=== PATIENT | female | born 1960 | race Caucasian/White ===

== ENCOUNTER 2017-05-29 07:37 | Day surgery (SDC) | payer OTHER ==
[2017-05-24 11:44] VITALS: BMI 28.3
[~2017-05-29 07:37] MED LIST: DOCUSATE 100 MG CAP PO PRN; MAG HYDROX/AL HYDROX/SIMETH 30 ML CUP PO PRN; SODIUM CHLORIDE 0.9% 1,000 ML IV SCH; TEMAZEPAM 15 MG CAP PO PRN
[2017-05-29 08:22] LABS: Basophils % (A) 0 %; CH 30.3; CHCM 32.8; Eosinophils # (A) 0.1 k/uL (0-0.7); Eosinophils % (A) 2 %; HCT 44.9 % (34.0-46.0); HDW 2.57; HGB 14.7 gm/dL (11.4-16.0); Luc # (Auto) 0.33; Luc % (Auto) 4; Lymphocytes # (A) 2.4 k/uL (1.0-4.8); Lymphocytes % (A) 28 %; MCH 30.4 pg (25.0-35.0); MCHC 32.7 g/dL (31.0-37.0); MCV 92.9 fL (80.0-100.0); Mean Platelet Volume 6.6; Monocytes # (A) 0.4 k/uL (0-1.0); Monocytes % (A) 5 %; Neutrophils # (A) 5.1 k/uL (1.3-7.7); Neutrophils % (A) 61 %; RBC 4.83 m/uL (3.80-5.40); RDW 14.9 % (11.5-15.5); WBC 8.4 k/uL (3.8-10.6); WBC (Perox) 8.39
[2017-05-29 08:43] LABS: Anion Gap 8 mmol/L; Blood Urea Nitrogen 12 mg/dL (7-17); Calcium 9.1 mg/dL (8.4-10.2); Carbon Dioxide 24 mmol/L (22-30); Chloride 110 mmol/L (98-107); Glucose 92 mg/dL (74-99); Non-African American GFR(MDRD) >60 (>60 ml/min/1.73 sqM); Potassium 4.3 mmol/L (3.5-5.1); Sodium 142 mmol/L (137-145)
[2017-05-29] MEDS ORDERED: ASPIRIN 325 MG TAB PO ONE (10:40)
[2017-05-29] MEDS: MIDAZOLAM 2 MG/2 ML VIAL IVP ONE ×2 (10:58→11:26)
[2017-05-29] MEDS ORDERED: LIDOCAINE 2% INJ 20 MG/ML SQ ONE (11:24)
[2017-05-29] MEDS ORDERED: HYDROmorphone 2 MG/ML 1 ML SYRINGE IVP ONE (11:31)
[2017-05-29] MEDS ORDERED: HEPARIN SODIUM 1,000 UN/ML (10ML VL) IV ONE (11:45)
[2017-05-29] MEDS ORDERED: IOHEXOL 350 MG/ML (PER ML) 100ML BTL INJ ONE (12:15)
[2017-05-29] MEDS ORDERED: SODIUM CHLORIDE 0.9% 1,000 ML IV SCH (12:15)
--- NOTE | 2017-05-29 12:39 | IR ---
EXAMINATION TYPE: IR angio aortic arch DATE OF EXAM: 05/29/2017 COMPARISON: NONE HISTORY: Peripheral vascular occlusive disease. Fluoroscopy was provided to the referring clinician. See dictated report from cardiology. 11.1 brandon jaspal of fluoroscopy provided.
--- NOTE | 2017-05-29 12:45 | AN ---
ANGIOGRAPHY REPORT DATE OF SERVICE: 05/29/2017 PERFORMING PHYSICIAN: Sheldon Bedoya MD, Sap Portal Consultant. PROCEDURE PERFORMED: 1. An aortic arch angiogram. 2. Selective left subclavian angiogram. 3. Gradient measurement across the left subclavian artery. INDICATION: This is a pleasant 56-year-old female patient who sees Dr. Agarwal as an outpatient who is known to have left subclavian stenosis where she underwent about 10 years ago angioplasty of the left subclavian, underwent an arterial duplex study which showed severe disease involving the left subclavian. She was having symptoms of left arm discomfort. She was brought today to undergo an aortic arch and left subclavian angiogram. APPROACH: Right common femoral artery. COMPLICATION: None. LEVEL OF SEDATION: Moderate. After obtaining an informed consent. The patient was brought to the Cardiac Senior It Engineer. The right common femoral artery was cannulated using micropuncture technique, the micropuncture wire passed easily. Then I placed a 6-[place]izen [place] sheath in the right common femoral artery. Subsequently, I did an aortic arch angiogram using a 5-Citizen [place] pigtail catheter. I did left subclavian angiogram using Garrett right catheter. I did after that gradient measurement across the left subclavian using a 4-[place]izen [place] catheter. The procedure was completed without any complication.. 1. SELECTIVE PERIPHERAL ANGIOGRAM: Aortic arch is a type 1 arch. Gives rise into the innominate artery, left subclavian, and left side the left common carotid, left subclavian. 2. The innominate artery is angiographically normal. 3. The left carotid is angiographically normal. 4. The left subclavian has a lesion in the proximal portion, just one lesion proximal to the left vertebral and one lesion distal to the left vertebral and the lesion seems to be in the range of 60%. I did pressure gradient across it and that came into significant around 23 mmHg. CONCLUSION: 1. Type 1 aortic arch. 2. Severe disease involving the proximal left subclavian just by the left vertebral artery. POSTPROCEDURE MANAGEMENT: The patient will be scheduled to undergo a SILK WINDING MACHINE OPERATOR of the left subclavian. MMODL / IJN: [id number] /
[2017-05-29 15:32] VITALS: TEMP 98.2
[2017-05-29] MEDS ORDERED: NICOTINE 21MG/24HR PATCH TRANSDERM STA (15:55)
[2017-05-29 18:32] VITALS: PULSE 58
[2017-05-29 21:10] VITALS: BP 130/62; RESP 16
== END 2017-05-29 21:17 | disposition home or self-care (01) ==
LOC: CATHCVL 07:37 → 3OBS 14:40 → CATHCVL 21:17
PROVIDERS: ATTEND Internal Medicine Interventional Cardiology
DX: I70.218 Atherosclerosis of native arteries of extremities with intermittent claudication, other extremity (principal); I10 Essential (primary) hypertension; E78.5 Hyperlipidemia, unspecified; Z82.49 Family history of ischemic heart disease and other diseases of the circulatory system; F17.210 Nicotine dependence, cigarettes, uncomplicated; H81.09 Meniere's disease, unspecified ear; Z79.82 Long term (current) use of aspirin; Z79.899 Other long term (current) drug therapy; Z88.0 Allergy status to penicillin
CPT/HCPCS: 99152; 99153 ×4; 75710; 36225; 85347; 80048; 85025; C1769 ×6; C1894; J2001; J2250; J1170; Q9967; J1644; 36216; 36221

== ENCOUNTER 2017-06-19 09:54 | Day surgery (SDC) | payer OTHER ==
[~2017-06-19 09:54] MED LIST changes: +ASPIRIN 325 MG TAB PO STA; -DOCUSATE 100 MG CAP PO PRN; -MAG HYDROX/AL HYDROX/SIMETH 30 ML CUP PO PRN; -SODIUM CHLORIDE 0.9% 1,000 ML IV SCH; +SODIUM CHLORIDE 0.9% 1,000 ML in EMPTY BAG 1 BAG IV ONE; -TEMAZEPAM 15 MG CAP PO PRN
[2017-06-19] MEDS: ALPRAZolam 0.25 MG TAB PO PRN ×2 (10:41→20:28)
[2017-06-19] MEDS ORDERED: MIDAZOLAM 2 MG/2 ML VIAL IVP ONE (11:25)
[2017-06-19] MEDS ORDERED: HYDROmorphone 2 MG/ML 1 ML SYRINGE IVP ONE (11:27)
[2017-06-19] MEDS ORDERED: HEPARIN SODIUM 1,000 UN/ML (10ML VL) IV ONE (11:28)
[2017-06-19] MEDS ORDERED: CLOPIDOGREL 75 MG TAB PO ONE (12:33)
[2017-06-19] MEDS ORDERED: IOHEXOL 350 MG/ML (PER ML) 100ML BTL INJ ONE (12:33)
[2017-06-19] MEDS ORDERED: SODIUM CHLORIDE 0.9% 1,000 ML IV SCH (12:45)
--- NOTE | 2017-06-19 13:11 | AN ---
ANGIOGRAPHY REPORT DATE OF SERVICE: 06/19/2017 PERFORMING PHYSICIAN: Sheldon Beodya MD, Central Office Repairer. PROCEDURE PERFORMED: 1. Selective left subclavian angiogram. 2. Successful stenting of the midleft subclavian using 8.0 x 40 mm self-expandable stent with good angiographic results. 3. Successful stenting of the proximal left subclavian using 7.0 x 19 mm balloon expandable stent with good angiographic results. INDICATION: This is a pleasant 56-year-old female patient who sees Dr. Agarwal as an outpatient who was experiencing left arm discomfort, seems to be related to left arm intermittent claudication. She underwent a peripheral angiogram a few weeks ago and that showed severe disease involving the left subclavian and she was brought today to undergo an intervention on the left subclavian artery. APPROACH: Right common femoral artery. COMPLICATION: None. LEVEL OF SEDATION: Moderate with sedation length of 70 minutes. PROCEDURE DESCRIPTION: After obtaining an informed consent, the patient was brought to the Cardiac Histology Specialist. The right common femoral artery was cannulated using micropuncture technique, the micropuncture wire passed easily, then I placed a 6-[place] sheath in the right common femoral artery. At that point, anticoagulation was initiated using heparin and the patient was given weight-based heparin of a total of 8000 units of heparin IV. After that, I did engage the left subclavian using JR4 catheter. I wired it using a Glidewire. After that, I did exchange my 11 cm sheath into 90 cm 6-[place] sheath over the Glidewire. After that, I did balloon angioplasty of the proximal and mid left subclavian using 6 mm x 20 mm balloon. After that, for the mid left subclavian, I deployed 8 x 40 mm self-expandable stent. For the proximal left subclavian, I deployed 7 x 20 mm expandable balloon stent. After that, I did post dilate both the stents using a 7 mm balloon. The following angiogram showed good angiographic results without perforation and without dissection with good flow. The procedure was completed without any complication. POSTPROCEDURE MANAGEMENT: 1. Dual anti-platelet therapy. 2. Follow up with the patient. MMODL / IJN: [id number] /
--- NOTE | 2017-06-19 13:58 | IR ---
EXAMINATION TYPE: IR stent intravas non coronary DATE OF EXAM: 06/19/2017 COMPARISON: NONE HISTORY: Peripheral vascular occlusive disease. Fluoroscopy was provided to the referring clinician. See dictated report from cardiology.
[2017-06-19 14:51] VITALS: RESP 18
[2017-06-19 17:48] VITALS: BMI 28.7
[2017-06-19] MEDS: LOPERAMIDE 2 MG CAP PO SCH (20:29)
[2017-06-19] MEDS ORDERED: amLODIPine 5 MG TAB PO SCH (21:00)
[2017-06-19] MEDS ORDERED: ASPIRIN 81 MG PO SCH (21:00)
[2017-06-19] MEDS ORDERED: ATORVASTATIN 20 MG TAB PO SCH (21:00)
[2017-06-19] MEDS ORDERED: AMITRIPTYLINE HCL 25 MG TAB PO SCH (21:00)
[2017-06-19] MEDS ORDERED: CITALOPRAM HYDROBROMIDE 20 MG TAB PO SCH (21:00)
[2017-06-20 07:13] LABS: Non-African American GFR(MDRD) >60 (>60 ml/min/1.73 sqM)
[2017-06-20] MEDS ORDERED: ASPIRIN 325 MG TAB PO SCH (09:00)
[2017-06-20] MEDS ORDERED: CLOPIDOGREL 75 MG TAB PO SCH (09:00)
[2017-06-20] MEDS: LOPERAMIDE 2 MG CAP PO SCH (09:47)
--- NOTE | 2017-06-20 09:54 | DS ---
DISCHARGE SUMMARY ADMISSION DATE: 06/19/2017 DISCHARGE DATE: 06/20/2017. BRIEF HISTORY: This is a pleasant 56-year-old female patient who sees Dr. Agarwal in the office as an outpatient. Was admitted to the hospital yesterday and underwent successful stenting of the proximal and mid left subclavian with good angiographic results and without any complication for left arm discomfort. Seems to be intermittent claudication. She underwent a peripheral angiogram before the intervention and that showed intermediate to severe disease involving the mid and proximal left subclavian, but the gradient measurement across it came into be more than 20 mmHg. The procedure was performed with good angiographic results and without any complication with gradient before the procedure by blood pressure cuff about 33 mmHg and by the end of the procedure was 0 mmHg. The patient is going to be discharged home on dual anti-platelet therapy and she will follow up with me in the office for 1 time, then she will follow up with Dr. Agarwal after that. MMKEVIN / NANCY: [id number] /
[2017-06-20 11:32] VITALS: BP 122/58; PULSE 69; TEMP 97.9
== END 2017-06-20 12:43 | disposition home or self-care (01) ==
LOC: CATHCVL 09:54 → 6SEL 13:20 → CATHCVL 06-20 12:43
PROVIDERS: ATTEND Internal Medicine Interventional Cardiology
DX: I77.9 Disorder of arteries and arterioles, unspecified (principal); I73.9 Peripheral vascular disease, unspecified; I65.22 Occlusion and stenosis of left carotid artery; I10 Essential (primary) hypertension; E78.2 Mixed hyperlipidemia; Z82.49 Family history of ischemic heart disease and other diseases of the circulatory system; F17.210 Nicotine dependence, cigarettes, uncomplicated; Z86.73 Personal history of transient ischemic attack (TIA), and cerebral infarction without residual deficits; Z88.0 Allergy status to penicillin; Z79.82 Long term (current) use of aspirin; Z79.899 Other long term (current) drug therapy
CPT/HCPCS: 36215; 37236; 85347; 82565; 99153; 99152; C1887; C1769 ×5; C1894 ×2; C1876 ×2; C1725; C1760; J2250; J1170; Q9967; J1644

== ENCOUNTER 2019-08-02 13:30 | Emergency (ER) | payer BC, OTHER ==
[2019-08-02] MEDS ORDERED: KETOROLAC 30 MG/ML 1 ML VIAL IM STA (13:57)
[2019-08-02] MEDS ORDERED: methylPREDNISolone SOD SUCCI 125 MG/2 ML VIAL IM ONE (13:57)
--- NOTE | 2019-08-02 14:22 | ED ---
General Adult HPI - General Chief complaint: Extremity Injury, Upper Stated complaint: Lt arm pain/has 2 stents in 2017 Time Seen by Provider: 08/02/19 13:45 Source: patient, RN notes reviewed Mode of arrival: ambulatory Limitations: no limitations - History of Present Illness Initial comments: 58-year-old female with a past medical history of CAD, hypertension, CVA, left subclavian stenosis with stenting presents to the emergency department for a chi ef complaint of left arm pain. Patient states this has been ongoing for 1 month. Patient states it is seeming to worsen. She saw her primary care provider and was given a shot of steroids as she was having shoulder pain with this. Patient states she always has neck pain. States the pain started in her forearm and is now into the shoulder as well. Denies alleviating or aggravating factors.Patient has no other complaints at this time including shortness of breath, chest pain, abdominal pain, nausea or vomiting, headache, or visual changes. - Related Data Home Medications Medication Instructions Recorded Confirmed Citalopram Hydrobromide 40 mg PO HS 09/12/14 06/19/17 [Citalopram HBr] Amitriptyline HCl [Elavil] 25 mg PO HS 05/24/17 06/19/17 Atorvastatin [Lipitor] 20 mg PO HS 05/24/17 06/19/17 Loperamide HCl [Loperamide] 2 mg PO BID 05/24/17 06/19/17 amLODIPine [Norvasc] 5 mg PO HS 05/24/17 06/19/17 Previous Rx's Medication Instructions Recorded Aspirin EC [Ecotrin] 325 mg PO DAILY #30 tablet. 06/20/17 Clopidogrel [Plavix] 75 mg PO DAILY #90 tab 06/20/17 Allergies Allergy/AdvReac Type Severity Reaction Status Date / Time bee venom protein (honey bee) Allergy Swelling Verified 08/02/19 13:36 Penicillins Allergy Unknown Verified 08/02/19 13:36 baby powder Allergy Dyspnea Uncoded 08/02/19 13:36 Review of Systems ROS Statement: Those systems with pertinent positive or pertinent negative responses have been documented in the HPI. ROS Other: All systems not noted in ROS Statement are negative. Past Medical History Past Medical History: Coronary Artery Disease (CAD), CVA/TIA, Hypertension, Osteoarthritis (OA), Pneumonia, Seizure Disorder Additional Past Medical History / Comment(s): 2002 CVA, SL MEMORY CHANGES. MIGRAINES. MENIERSE. SEVERAL SEIZURES IN 6 MO PERIOD, NONE SINCE 2001 OR BEFORE. DIVERTICULITIS, IBS - SEVERE. LT SUBCLAVIAN STENOSIS, ARM FEELS HEAVY. History of Any Multi-Drug Resistant Organisms: None Reported Past Surgical History: Orthopedic Surgery Additional Past Surgical History / Comment(s): vessel blockage in left arm, 2010, PTBA. ECTOPIC PREGNANCIES, SEVERAL MISCARRIAGES, D&C. BONE SPURS REMOVED HEELS, AORTAGRAM 05/29/17 Past Anesthesia/Blood Transfusion Reactions: No Reported Reaction, Motion Sickness Past Psychological History: Anxiety, Panic Disorder Smoking Status: Heavy tobacco smoker Past Alcohol Use History: None Reported Past Drug Use History: None Reported - Past Family History Brother(s) Family Medical History: Cancer Sister(s) Family Medical History: Cancer Father Family Medical History: CVA/TIA, Dementia, Diabetes Mellitus Additional Family Medical History / Comment(s): PARKINSONS, FROM MASSIVE STROKE AT AGE 67 Mother Family Medical History: Cancer, Diabetes Mellitus, Myocardial Infarction ([place]) Additional Family Medical History / Comment(s): RHEUMATIC FEVER CHILD -HEART DAMAGE- AT AGE 63 [place] General Exam Limitations: no limitations General appearance: alert, in no apparent distress Head exam: Present: atraumatic, normocephalic, normal inspection Eye exam: Present: normal appearance, PERRL, EOMI. Absent: scleral icterus, conjunctival injection, periorbital swelling ENT exam: Present: normal exam, mucous membranes moist Neck exam: Present: normal inspection, full ROM. Absent: tenderness, meningismus, lymphadenopathy Respiratory exam: Present: normal lung sounds bilaterally. Absent: respiratory distress, wheezes, rales, rhonchi, stridor Cardiovascular Exam: Present: regular rate, normal rhythm, normal heart sounds. Absent: systolic murmur, diastolic murmur, rubs, gallop, clicks Extremities exam: Present: full ROM (Full Range motion of the left arm.), normal capillary refill (Capillary refill is < 2 seconds in the left upper extremity and equal to the right upper extremity, radial pulse 2+ in the left upper extremity. Hand is warm and equal to the right. Skin exam is normal.), other (Strength is 5 out of 5 in upper extremities bilaterally. Sensation is intact in left upper extremity). Absent: tenderness (No significant tenderness of the left arm.), pedal edema, joint swelling, calf tenderness Course Vital Signs 08/02/19 08/02/19 13:33 15:51 Temperature 97.4 F L 97.8 F Pulse Rate 82 54 L Respiratory 16 18 Rate Blood Pressure 128/65 136/60 O2 Sat by Pulse 97 97 Oximetry EKG Findings - EKG Comments: EKG Findings:: Sinus bradycardia, ventricular rate 59, MS 132, QTc 461 Medical Decision Making - Medical Decision Making 88-year-old female presents for left arm pain. This is been ongoing for 1 month but worsening. Patient has numbness of the first and second digits. I think that this is likely a radiculopathy with paresthesia. X-ray of the left shoulder shows no acute fracture or dislocation. X-ray of the cervical spine shows no acute fracture or dislocation. However given patient's history of severely stenotic left subclavian CTA was ordered. I did speak with [facility] about this he recommends a CT chest angio for better visualization of the subclavian. I have reviewed patient's reports and she did have symptomatic left arm pain due to a left subclavian stenosis even when maintaining her radial pulse. CTA of the chest shows no subclavian abnormality identified. The stent is noted to be patent and in place. this did bring patient much relief. Her symptoms are likely related to radiculopathy with paresthesia. Recommended she follow up with orthopedics. Re commended she return here if she has any worsening symptoms. - Lab Data Result diagrams: 08/02/19 14:40 08/02/19 14:40 Lab Results 08/02/19 08/02/19 Range/Units 14:40 14:40 WBC 9.0 (3.8-10.6) k/uL RBC 4.89 (3.80-5.40) m/uL Hgb 14.4 (11.4-16.0) gm/dL Hct 44.0 (34.0-46.0) % MCV 89.9 (80.0-100.0) fL MCH 29.5 (25.0-35.0) pg MCHC 32.8 (31.0-37.0) g/dL RDW 15.2 (11.5-15.5) % Plt Count 186 (150-450) k/uL Neutrophils % 65 % Lymphocytes % 28 % Monocytes % 3 % Eosinophils % 1 % Basophils % 0 % Neutrophils # 5.9 (1.3-7.7) k/uL Lymphocytes # 2.5 (1.0-4.8) k/uL Monocytes # 0.3 (0-1.0) k/uL Eosinophils # 0.1 (0-0.7) k/uL Basophils # 0.0 (0-0.2) k/uL Sodium 139 (137-145) mmol/L Potassium 4.0 (3.5-5.1) mmol/L Chloride 107 (98-107) mmol/L Carbon Dioxide 25 (22-30) mmol/L Anion Gap 7 mmol/L BUN 13 (7-17) mg/dL Creatinine 0.71 (0.52-1.04) mg/dL Est GFR (CKD-EPI)AfAm >90 (>60 ml/min/1.73 sqM) Est GFR (CKD-EPI)NonAf >90 (>60 ml/min/1.73 sqM) Glucose 87 (74-99) mg/dL Calcium 9.2 (8.4-10.2) mg/dL Total Bilirubin 0.5 (0.2-1.3) mg/dL AST 18 (14-36) U/L ALT 21 (9-52) U/L Alkaline Phosphatase 76 (38-126) U/L Total Protein 6.5 (6.3-8.2) g/dL Albumin 3.9 (3.5-5.0) g/dL Disposition Clinical Impression: Radiculopathy Disposition: HOME SELF-CARE Condition: Good Instructions (If sedation given, give patient instructions): Cervical Radiculopathy (ED), Paresthesia (ED) Additional Instructions: Please continue to take anti-inflammatories. Please follow-up with primary care and orthopedics in one to 2 days. Return to the emergency department if you have any worsening symptoms. Is patient prescribed a controlled substance at d/c from ED?: No Referrals: Dexter Glover DO [Primary Care Provider] - 1-2 days Christian Beal DO [Doctor of Osteopathic Medicine] - 1-2 days Time of Disposition: 16:01
--- NOTE | 2019-08-02 14:26 | XR ---
EXAMINATION TYPE: XR shoulder complete LT DATE OF EXAM: 08/02/2019 CLINICAL HISTORY: pain COMPARISON: NONE TECHNIQUE: Three views of the left shoulder are obtained. FINDINGS: There is no acute fracture/dislocation evident. The acromioclavicular and glenohumeral hair int spaces appear moderately narrowed. The visualized ribs are intact and unremarkable. IMPRESSION: 1. There is no acute fracture or dislocation. ICD 10 NO FRACTURE, INITIAL EVALUATION
--- NOTE | 2019-08-02 14:33 | XR ---
EXAMINATION TYPE: XR cervical spine comp DATE OF EXAM: 08/02/2019 CLINICAL HISTORY: pain COMPARISON: NONE TECHNIQUE: Frontal, lateral, oblique, swimmers, and open mouth view of the cervical spine are obtaine d. FINDINGS: The cervical spine is visualized in its entirety from C1 thru the top of T1 level. It is s atisfactory in alignment without evidence of acute fracture or dislocation. The pre-vertebral soft t issue appears within normal limits. Mild degenerative disc space narrowing and spondylosis. The C1-C2 articulation is unremarkable on the open mouth view. The oblique images are within normal limits. IMPRESSION: No acute fracture or dislocation is seen in the cervical spine.ICD 10 NO FRACTURE, INITI AL EVALUATION
[2019-08-02] MEDS ORDERED: SODIUM CHLORIDE 0.9% 500 ML 500 ML IV STA (14:36)
[2019-08-02 14:52] LABS: Basophils % (A) 0 %; Eosinophils # (A) 0.1 k/uL (0-0.7); Eosinophils % (A) 1 %; HGB 14.4 gm/dL (11.4-16.0); Lymphocytes # (A) 2.5 k/uL (1.0-4.8); Lymphocytes % (A) 28 %; MCH 29.5 pg (25.0-35.0); MCHC 32.8 g/dL (31.0-37.0); MCV 89.9 fL (80.0-100.0); Mean Platelet Volume 6.2; Monocytes # (A) 0.3 k/uL (0-1.0); Monocytes % (A) 3 %; Neutrophils # (A) 5.9 k/uL (1.3-7.7); Neutrophils % (A) 65 %; Platelet Count 186 k/uL (150-450); RBC 4.89 m/uL (3.80-5.40); RDW 15.2 % (11.5-15.5)
[2019-08-02 15:01] LABS: ALT 21 U/L (9-52); AST 18 U/L (14-36); African American GFR (CKD) >90 (>60 ml/min/1.73 sqM); Albumin 3.9 g/dL (3.5-5.0); Alkaline Phosphatase 76 U/L (38-126); Anion Gap 7 mmol/L; Blood Urea Nitrogen 13 mg/dL (7-17); Calcium 9.2 mg/dL (8.4-10.2); Carbon Dioxide 25 mmol/L (22-30); Chloride 107 mmol/L (98-107); Glucose 87 mg/dL (74-99); Non-African American GFR(CKD) >90 (>60 ml/min/1.73 sqM); Sodium 139 mmol/L (137-145); Total Bilirubin 0.5 mg/dL (0.2-1.3); Total Protein 6.5 g/dL (6.3-8.2)
[2019-08-02 15:52] VITALS: BP 136/60; PULSE 54; RESP 18; TEMP 97.8
--- NOTE | 2019-08-02 15:54 | CT ---
EXAMINATION TYPE: CT angio chest DATE OF EXAM: 08/02/2019 COMPARISON: None HISTORY: Left arm pain. History of left subclavian blockage and stent x 2. CT DLP: 901.3 mGycm CONTRAST: CT chest with contrast and 3D reconstruction with MIP imaging is performed without and with IV Contra st, patient injected with 100 mL of Isovue 370. Contrast-enhanced CT of the chest was performed through the course of the pulmonary arteries with reggie g and mediastinal window settings submitted. 3D reconstruction with MIP imaging was also performed. Left subclavian stent is noted to be in place. The stent is patent. Normal outflow into the remaining left subclavian artery and the left axillary artery. PULMONARY ARTERIES: The pulmonary arteries and their major tributaries are patent. I do not see neptali dence for sizable filling defect to suggest pulmonary embolic process. LUNGS: The lungs are clear and free of infiltrate. No evidence for atelectasis. No pulmonary nodule or mass is detected. No pleural effusion. MEDIASTINUM: Thoracic aorta is of normal caliber,however, evaluation is limited given timing of the contrast bolus. If there is concern for thoracic aortic pathology consider ORI. Correlate clinicall y . The heart is not enlarged. No evidence for mediastinal mass. No mediastinal lymph nodes greater than 1cm. HILAR STRUCTURES: No evidence for mass. No hilar lymph nodes greater than 1 cm. UPPER ABDOMEN: 3 cm adrenal mass is uncertain etiology. Consider adenoma. Lesion of other etiology no t excluded. IMPRESSION: 1. No evidence for Pulmonary embolism at this time. 2. No subclavian abnormality identified on the left. Stent is noted to be patent and in place.
== END 2019-08-02 16:08 | disposition home or self-care (01) ==
LOC: EC 13:30
DX: M54.10 Radiculopathy, site unspecified (principal); M25.512 Pain in left shoulder; I70.8 Atherosclerosis of other arteries; F41.9 Anxiety disorder, unspecified; I25.10 Atherosclerotic heart disease of native coronary artery without angina pectoris; I10 Essential (primary) hypertension; M19.90 Unspecified osteoarthritis, unspecified site; F17.210 Nicotine dependence, cigarettes, uncomplicated; Z79.899 Other long term (current) drug therapy; Z88.0 Allergy status to penicillin; Z91.030 Bee allergy status; Z86.73 Personal history of transient ischemic attack (TIA), and cerebral infarction without residual deficits; Z98.890 Other specified postprocedural states
CPT/HCPCS: 36415; 71275; 72050; 80053; 85025; 93005; 96360; 96372; 99284

== ENCOUNTER → 2021-05-17 | Outpatient (CLI) | payer BC ==
[2021-05-17 08:09] VITALS: BP 161/76; PULSE 70; RESP 18
--- NOTE | 2021-05-17 08:30 | P.PAINCN ---
History of Present Illness - Reason for Consult Consult date: 05/17/21 - History of Present Illness This is a 60 years old female with a chronic history of severe neck pain, radiation to the upper extremity associated with numbness and tingling sensation mainly on the left upper extremity, symptoms started 3 years ago she denies any initiating event, the pain and the numbness is constant and increases with any activity interfere with the quality of life patient tried physical therapy for several months without any benefit and she tried chiropractors/massage therapy without any benefit and she tried the medication gabapentin without any benefit, he denies any motor or sensory deficits denies any fever or night sweats under is no change in the bowel movement or urination, she continued to work in plastic factory. Past Medical History Past Medical History: Coronary Artery Disease (CAD), CVA/TIA, Hyperlipidemia, Hypertension, Osteoarthritis (OA), Pneumonia, Seizure Disorder Additional Past Medical History / Comment(s): 2002 CVA, SL MEMORY CHANGES. MIGRAINES. MENIERES. SEVERAL SEIZURES IN 6 MO PERIOD, NONE SINCE 2001 OR BEFORE. DIVERTICULITIS, IBS - SEVERE. hx. LT SUBCLAVIAN STENOSIS, DDD in neck History of Any Multi-Drug Resistant Organisms: None Reported Past Surgical History: Heart Catheterization With Stent, Orthopedic Surgery Additional Past Surgical History / Comment(s): PTBA. ECTOPIC PREGNANCIES, SEVERAL MISCARRIAGES, D&C. BONE SPURS REMOVED HEELS, AORTAGRAM 05/29/17, subclavian surg. x2 w/stents Past Anesthesia/Blood Transfusion Reactions: No Reported Reaction, Motion Sickness Date of Last Stent Placement:: 2018 Past Psychological History: Anxiety, Panic Disorder Additional Psychological History / Comment(s): CELEXA Smoking Status: Current every day smoker Past Alcohol Use History: Occasional Additional Past Alcohol Use History / Comment(s): STARTED SMOKING AT AGE 11 - SMOKES 1 1/2 PPD Past Drug Use History: None Reported - Past Family History Brother(s) Family Medical History: Cancer Sister(s) Family Medical History: Cancer Father Family Medical History: CVA/TIA, Dementia, Diabetes Mellitus Additional Family Medical History / Comment(s): PARKINSONS, FROM MASSIVE STROKE AT AGE 67 Mother Family Medical History: Cancer, Diabetes Mellitus, Myocardial Infarction ([place]) Additional Family Medical History / Comment(s): RHEUMATIC FEVER CHILD -HEART DAMAGE- AT AGE 63 [place] Medications and Allergies Home Medications Medication Instructions Recorded Confirmed Type Citalopram Hydrobromide 40 mg PO HS 09/12/14 05/17/21 History [Citalopram HBr] Amitriptyline HCl [Elavil] 25 mg PO HS 05/24/17 05/17/21 History Atorvastatin [Lipitor] 20 mg PO HS 05/24/17 05/17/21 History Loperamide HCl [Loperamide] 2 mg PO BID 05/24/17 05/17/21 History amLODIPine [Norvasc] 5 mg PO HS 05/24/17 05/17/21 History Aspirin EC [Ecotrin] 325 mg PO DAILY #30 tablet. 06/20/17 05/17/21 Rx Clopidogrel [Plavix] 75 mg PO DAILY #90 tab 06/20/17 05/17/21 Rx Gabapentin [Neurontin] 300 mg PO Q8H PRN 05/14/21 05/17/21 History hydroCHLOROthiazide [Hydrodiuril] 12.5 mg PO DAILY 05/14/21 05/17/21 History Allergies Allergy/AdvReac Type Severity Reaction Status Date / Time bee venom protein (honey bee) Allergy Swelling Verified 05/17/21 07:54 Penicillins Allergy Unknown Verified 05/17/21 07:54 baby powder Allergy Dyspnea Uncoded 05/17/21 07:54 Physical Exam Vitals: Vital Signs Pulse Resp BP Pulse Ox 05/17/21 07:54 70 18 161/76 98 Physical Examinations : -Constitutiona : Cooperative , not in acute distress . -HEENT : nech : supple , no Lymphadenopathy , normal thyroid size . : eyes : no ptosis , no icterus, no photophobia . - neurologic : Cranial nerve II to XII intact , no focal neurological deffecit . -psychatric : alert , oriented X 3 , appropriate affect , intact judgment and insight . -Lymphatic : no Lymphadenopathy . - musculoskeltal : Cervical Spine motor stregnth in the deltoid and bic eps, normal right side , normal Left side motor stregnth biceps and the wrist extensors normal right side ,normal left side . motor stregnth in the triceps muscle . normal Right side , normal Left side deep tendon reflexes normal at the biceps , normal at Brachioradialis , normal at triceps. cervical facet loading test: Positive Bilaterally Spurling test= positive Right , positive left. Neck distraction test= positive Right , positive left. Shelly sign= positive right, positive left . Lumber spine moter stegnth lower extremities ,thigh and legs 5/5 Right side , 5/5 Left side Results Comments: MRI of the cervical spine multilevel cervical degenerative disc disease, cervical spondylosis with cervical facet arthropathy and multilevel foraminal stenosis Assessment and Plan Plan: Assessment and plan=1-cervical radiculopathy. 2-cervical degenerative disease. 3-cervical foraminal stenosis. 4- cervical spondylosis with facet arthropathy. she could benefit from cervical epidural steroid injection at C7-T1 left paramedian approach had to hold Plavix for 1 week before the procedure Time with Patient: Greater than 30 PQRS Measure Charge Sheet Measure #130: Documentation of Current Meds in Medical Chart: Patient's medications documented in chart Measure #226: Tobacco Use: Screen & Cessation Intervention: Pt screened for tobacco use AND intervention given Measure #111: Pneumonia Vaccination: Pneumococcal vaccine NOT administered or previously given Measure #47: Advance Care Plan: Advance care planning discussed & documented, pt chose/unable to give Measure #412: Opioid Treatment Agreement: No documentation of signed opioid treatment agreement Measure #408: Opioid Therapy Follow-up Evaluation: Patient had NO f/u eval minimum every 3 months during opioid therapy Measure #317: Preventitive Care & Scrn High Bld Press & F/U: Pre-hypertensive or hypertensive BP documented, pt will f/u with PCP Measure #128: Body Mass Index (BMI) Screening & Follow-up: BMI documented ABOVE normal parameters - f/u documented Measure #131: Pain Assessment & Follow-up: Pain positive & plan documented, Follow-up scheduled Measure #431: Unhealthy Alcohol Use Preventative Care & Scrn: Patient not identified as an unhealthy alcohol user PQRS Narrative: Smoking Status Heavy tobacco smoker Blood Pressure 161/76 Pain Intensity [Neck] 3 Scale Used Numeric (1 - 10) Hx Alcohol Use (MH) Yes Home Medications: Ambulatory Orders Citalopram Hydrobromide [Citalopram HBr] 40 mg PO HS 09/12/14 Amitriptyline HCl [Elavil] 25 mg PO HS 05/24/17 Atorvastatin [Lipitor] 20 mg PO HS 05/24/17 Loperamide HCl [Loperamide] 2 mg PO BID 05/24/17 amLODIPine [Norvasc] 5 mg PO HS 05/24/17 Aspirin EC [Ecotrin] 325 mg PO DAILY #30 tablet.dr 06/20/17 Clopidogrel [Plavix] 75 mg PO DAILY #90 tab 06/20/17 Gabapentin [Neurontin] 300 mg PO Q8H PRN 05/14/21 hydroCHLOROthiazide [Hydrodiuril] 12.5 mg PO DAILY 05/14/21
== END | disposition home or self-care (01) ==
LOC: PNWHC3 07:45
PROVIDERS: ATTEND Specialist
DX: M50.10 Cervical disc disorder with radiculopathy, unspecified cervical region (principal); M47.892 Other spondylosis, cervical region; M48.02 Spinal stenosis, cervical region
CPT/HCPCS: 99211

== ENCOUNTER 2021-06-10 08:08 | Day surgery (SDC) | payer BC ==
[2021-06-09 12:02] VITALS: BMI 25.7
[~2021-06-10 08:08] MED LIST changes: -ASPIRIN 325 MG TAB PO STA; +LACTATED RINGERS 1,000 ML IV SCH; -SODIUM CHLORIDE 0.9% 1,000 ML in EMPTY BAG 1 BAG IV ONE
[2021-06-10 08:54] VITALS: RESP 16; TEMP 97.3
[2021-06-10] MEDS ORDERED: LIDOCAINE 1% (10MG/ML) FOR IV START INTRADERMA ONE (09:09)
[2021-06-10] MEDS ORDERED: DEXAMETHASONE SOD PHOSPHATE 10 MG/ML 1 ML VIAL ONE (09:38)
[2021-06-10] MEDS ORDERED: IOPAMIDOL M200 10 ML VIAL ONE (09:38)
[2021-06-10] MEDS ORDERED: fentaNYL (PF) 50 MCG/ML 2 ML AMP ONE (09:38)
[2021-06-10] MEDS ORDERED: MIDAZOLAM 2 MG/2 ML VIAL ONE (09:38)
--- NOTE | 2021-06-10 09:54 | P.PCN ---
Date of Procedure: 06/10/21 Surgeon: Ramez Boogie Pathology: none sent Condition: stable Disposition: PACU Description of Procedure: PROCEDURE 1. Cervical epidural steroid injection under fluoroscopic guidance, C7-T1 left paramedian approach. 2. Cervical epidurogram. : PREOPERATIVE DIAGNOSIS: Cervical radiculopathy, cervical spondylosis without myelopathy POSTOPERATIVE DIAGNOSIS: : Same as above ANESTHESIA: Local anesthesia with 1% lidocaine and IV moderate conscious sedation with Versed and Fentanyl . EBL 0 PROCEDURE INDICATION: The patient with neck pain and radiculopathy unresponsive to conservative treatment consents for procedure. PROCEDURE DESCRIPTION / TECHNIQUE: The patient was seen and identified in the preoperative area. Risks, benefits, complications, including but not limited to infections ,bleeding , allergic reactions to the medications ,and not complete pain relief, and alternatives were discussed with the patient, the patient agreed to proceed with the procedure and signed the consent. Patient was taken to the OR and time out was completed. The patient was placed in the prone position on the procedure table. A pillow was placed under the patients chest to increase the flexion of the cervical spine . The cervical area was prepped and draped in the usual sterile fashion. Vital signs were closely monitored during the procedure. Conscious sedation was used during the procedure to decrease patients anxiety. Using anterior-posterior fluoroscopy, the C7-T1 interlaminar space was identified and the skin over this site was marked and then infiltrated with 1% lidocaine subcutaneously. Subsequently, a 20-gauge 3-1/2-inch Tuohy epidural needle was inserted and advanced toward the epidural space by means of loss of resistance to air technique and guided by AP and lateral fluoroscopy. The needle tip contacted the lamina of T1 vertebra first, then it was walked off bone and into the epidural space using the loss of to air and fluoroscopic guidance to identify the epidural space. The correct needle position in the epidural space was verified with the injection of 1 mL of the water soluble contrast dye Isovue and observing an excellent epidurogram with the epidural spread of the dye, after negative aspiration for blood and CSF and in the absence of paresthesias. Again after negative aspiration, a 2 ml mixture containing 10 mg of Decadron and 1 ml of preservative free Normal Saline solution was injected and a washout of epidurogram was seen. Needle was withdrawn intact, skin was cleansed, and bandages were applied. A copy of the needle placement picture was saved to the fluoroscopy machine.
[2021-06-10] MEDS ORDERED: IV FLUID CONTINUATION 1,000 ML IV ONE (09:59)
--- NOTE | 2021-06-10 10:07 | FL ---
EXAMINATION TYPE: FL guided pain mgmt statistic DATE OF EXAM: 06/10/2021 HISTORY: Fluoroscopy time 9 seconds of fluoroscopy provided. IMPRESSION: 1. Fluoroscopy time.
[2021-06-10 10:16] VITALS: BP 138/57; PULSE 62
== END 2021-06-10 10:33 | disposition home or self-care (01) ==
LOC: ORPAIN 08:08
PROVIDERS: ATTEND Anesthesiology
DX: M47.22 Other spondylosis with radiculopathy, cervical region (principal); I73.9 Peripheral vascular disease, unspecified; Z79.82 Long term (current) use of aspirin; Z79.899 Other long term (current) drug therapy; Z91.030 Bee allergy status; Z88.0 Allergy status to penicillin; Z91.048 Other nonmedicinal substance allergy status; Z78.0 Asymptomatic menopausal state; Z79.02 Long term (current) use of antithrombotics/antiplatelets
CPT/HCPCS: 62321; J2250; J1100; J3010; Q9966; 99152

== ENCOUNTER 2021-07-08 08:23 | Day surgery (SDC) | payer BC ==
[2021-07-06 11:34] VITALS: BMI 26.5
[2021-07-08 09:00] VITALS: RESP 16; TEMP 97.7
[2021-07-08] MEDS ORDERED: LIDOCAINE 1% (10MG/ML) FOR IV START INTRADERMA ONE (09:02)
[2021-07-08] MEDS ORDERED: DEXAMETHASONE SOD PHOSPHATE 10 MG/ML 1 ML VIAL ONE (09:35)
[2021-07-08] MEDS ORDERED: IOPAMIDOL M200 10 ML VIAL ONE (09:35)
[2021-07-08] MEDS ORDERED: MIDAZOLAM 2 MG/2 ML VIAL ONE (09:35)
--- NOTE | 2021-07-08 09:49 | P.PCN ---
Date of Procedure: 07/08/21 Surgeon: Ramez Boogie Pathology: none sent Condition: stable Disposition: PACU Description of Procedure: PROCEDURE 1. Cervical epidural steroid injection under fluoroscopic guidance, C7-T1 left paramedian approach. 2. Cervical epidurogram. : PREOPERATIVE DIAGNOSIS: Cervical radiculopathy, cervical spondylosis without myelopathy POSTOPERATIVE DIAGNOSIS: : Same as above ANESTHESIA: Local anesthesia with 1% lidocaine and IV moderate conscious sedation with 1 mg of Versed . EBL 0 PROCEDURE INDICATION: The patient with neck pain and radiculopathy unresponsive to conservative treatment consents for procedure. PROCEDURE DESCRIPTION / TECHNIQUE: The patient was seen and identified in the preoperative area. Risks, benefits, complications, including but not limited to infections ,bleeding , allergic reactions to the medications ,and not complete pain relief, and alternatives were discussed with the patient, the patient agreed to proceed with the procedure and signed the consent. Patient was taken to the OR and time out was completed. The patient was placed in the prone position on the procedure table. A pillow was placed under the patients chest to increase the flexion of the cervical spine . The cervical area was prepped and draped in the usual sterile fashion. Vital signs were closely monitored during the procedure. Conscious sedation was used during the procedure to decrease patients anxiety. Using anterior-posterior fluoroscopy, the C7-T1 interlaminar space was identified and the skin over this site was marked and then infiltrated with 1% lidocaine subcutaneously. Subsequently, a 20-gauge 3-1/2-inch Tuohy epidural needle was inserted and advanced toward the epidural space by means of loss of resistance to air technique and guided by AP and lateral fluoroscopy. The needle tip contacted the lamina of T1 vertebra first, then it was walked off bone and into the epidural space using the loss of to air and fluoroscopic guidance to identify the epidural space. The correct needle position in the epidural space was verified with the injection of 1 mL of the water soluble contrast dye Isovue and observing an excellent epidurogram with the epidural spr ead of the dye, after negative aspiration for blood and CSF and in the absence of paresthesias. Again after negative aspiration, a 2 ml mixture containing 10 mg of Decadron and 1 ml of preservative free Normal Saline solution was injected and a washout of epidurogram was seen. Needle was withdrawn intact, skin was cleansed, and bandages were applied. A copy of the needle placement picture was saved to the fluoroscopy machine.
--- NOTE | 2021-07-08 09:57 | FL ---
EXAMINATION TYPE: FL guided pain mgmt statistic DATE OF EXAM: 07/08/2021 HISTORY: Fluoroscopy time 8 seconds of fluoroscopy provided. IMPRESSION: 1. Fluoroscopy time.
[2021-07-08] MEDS ORDERED: IV FLUID CONTINUATION 1,000 ML IV ONE (10:00)
[2021-07-08 10:10] VITALS: BP 135/80; PULSE 64
== END 2021-07-08 10:22 | disposition home or self-care (01) ==
LOC: ORPAIN 08:23
PROVIDERS: ATTEND Anesthesiology
DX: M47.22 Other spondylosis with radiculopathy, cervical region (principal); F41.9 Anxiety disorder, unspecified
CPT/HCPCS: 62321; J2250; J1100; Q9966

== ENCOUNTER → 2021-08-09 | Outpatient (CLI) | payer BC ==
[2021-08-09 09:48] VITALS: BP 149/66; PULSE 66; RESP 18; TEMP 97.7
--- NOTE | 2021-08-09 10:08 | P.PN ---
Subjective Progress Note Date: 08/09/21 This is follow up visit for this 61 years old female ,with a chronic history of severe neck pain, radiation to the upper extremity associated with numbness and tingling sensation mainly on the left upper extremity, symptoms started 3 years ago she denies any initiating event, the pain and the numbness is constant and increases with any activity interfere with the quality of life patient tried physical therapy for several months without any benefit and she tried chiropractors/massage therapy without any benefit and she tried the medication gabapentin without any benefit, he denies any motor or sensory deficits denies any fever or night sweats under is no change in the bowel movement or urination, status post cervical epidural steroid injections 2, for that she gets excellent pain relief after the first cervical epidural injection and she gets 30% improvement of her neck pain after the second. Physical Examinations : -Constitutiona : Cooperative , not in acute distress . -HEENT : nech : supple , no Lymphadenopathy , normal thyroid size . : eyes : no ptosis , no icterus, no photophobia . - neurologic : Cranial nerve II to XII intact , no focal neurological deffecit . -psychatric : alert , oriented X 3 , appropriate affect , intact judgment and insight . -Lymphatic : no Lymphadenopathy . - musculoskeltal : Cervical Spine motor stregnth in the deltoid and biceps, normal right side , normal Left side motor stregnth biceps and the wrist extensors normal right side ,normal left side . motor stregnth in the triceps muscle . normal Right side , normal Left side deep tendon reflexes normal at the biceps , normal at Brachioradialis , normal at triceps. cervical facet loading test: Positive Bilaterally Spurling test= positive Right , positive left. Neck distraction test= positive Right , positive left. Shelly sign= positive right, positive left . Lumber spine moter stegnth lower extremities ,thigh and legs 5/5 Right side , 5/5 Left side Results Comments: MRI of the cervical spine multilevel cervical degenerative disc disease, cervical spondylosis with cervical facet arthropathy and multilevel foraminal stenosis Assessment and Plan Plan: Assessment and plan=1-cervical radiculopathy. 2-cervical degenerative disease. 3-cervical foraminal stenosis. 4- cervical spondylosis with facet arthropathy. she could benefit from 3 rd cervical epidural steroid injection at C6-7 left paramedian approach (without sedation ) had to hold Plavix for 1 week before the procedure. Time with Patient: less than 30 PQRS Measure Charge Sheet Measure #130: Documentation of Current Meds in Medical Chart: Patient's medications documented in chart Measure #226: Tobacco Use: Screen & Cessation Intervention: Pt screened for tobacco use AND intervention given Measure #111: Pneumonia Vaccination: Pneumococcal vaccine NOT administered or previously given Measure #47: Advance Care Plan: Advance care planning discussed & documented, pt chose/unable to give Measure #412: Opioid Treatment Agreement: No documentation of signed opioid treatment agreement Measure #408: Opioid Therapy Follow-up Evaluation: Patient had NO f/u eval minimum every 3 months during opioid therapy Measure #317: Preventitive Care & Scrn High Bld Press & F/U: Pre-hypertensive or hypertensive BP documented, pt will f/u with PCP Measure #128: Body Mass Index (BMI) Screening & Follow-up: BMI documented ABOVE normal parameters - f/u documented Measure #131: Pain Assessment & Follow-up: Pain positive & plan documented, Follow-up scheduled Measure #431: Unhealthy Alcohol Use Preventative Care & Scrn: Patient not identified as an unhealthy alcohol user PQRS Narrative: Objective - Vital Signs Vital signs: Vital Signs Temp 97.7 F 08/09/21 09:42 Pulse 66 08/09/21 09:42 Resp 18 08/09/21 09:42 BP 149/66 08/09/21 09:42 Pulse Ox 96 08/09/21 09:42
== END | disposition home or self-care (01) ==
LOC: PNWHC3 09:18
PROVIDERS: ATTEND Specialist
DX: M47.892 Other spondylosis, cervical region (principal); M48.02 Spinal stenosis, cervical region; M50.10 Cervical disc disorder with radiculopathy, unspecified cervical region
CPT/HCPCS: 99211

== ENCOUNTER → 2022-09-23 | Outpatient (CLI) | payer BC ==
[2022-09-23 16:45] LABS: ALT 12 U/L (8-44); AST 16 U/L (13-35); African American GFR (CKD) 90.9 (60.0-200.0); Albumin 4.2 g/dL (3.8-4.9); Albumin/Globulin Ratio 1.56 (1.60-3.17); Alkaline Phosphatase 89 U/L (41-126); BUN/Creat Ratio 11.25 Ratio (12.00-20.00); Calcium 9.2 mg/dL (8.7-10.3); Chloride 103 mmol/L (96-109); Chol/HDL Ratio 2.25 Ratio; Globulin 2.7 g/dL (1.6-3.3); Glucose 83 mg/dL (70-110); LDL Cholesterol,Calculated 60.9 mg/dL (0.0-131.0); Non-African American GFR(CKD) 78.5 (60.0-200.0); Potassium 4.1 mmol/L (3.5-5.5); Sodium 140 mmol/L (135-145); Total Protein 6.9 g/dL (6.2-8.2); VLDL Calculation 12.94 mg/dL (5.00-40.00)
== END | disposition home or self-care (01) ==
LOC: LABWHC1 09:16
PROVIDERS: ATTEND Internal Medicine Interventional Cardiology
DX: E78.2 Mixed hyperlipidemia (principal)
CPT/HCPCS: 36415; 80053; 80061

== ENCOUNTER → 2023-07-03 | Outpatient (CLI) | payer BC ==
[2023-07-03 11:07] LABS: ALT 15 U/L (8-44); AST 13 U/L (13-35); Chol/HDL Ratio 2.55 Ratio; LDL Cholesterol,Calculated 77.3 mg/dL (0.0-131.0); VLDL Calculation 12.74 mg/dL (5.00-40.00)
== END | disposition home or self-care (01) ==
LOC: LABWHC1 07:45
PROVIDERS: ATTEND Internal Medicine Interventional Cardiology
DX: E78.2 Mixed hyperlipidemia (principal)
CPT/HCPCS: 36415; 80061; 84450; 84460

== ENCOUNTER → 2023-11-13 | Outpatient (CLI) | payer BC ==
[2023-11-13 19:09] LABS: ALT 15 U/L (8-44); AST 19 U/L (13-35); Chol/HDL Ratio 2.04 Ratio; LDL Cholesterol,Calculated 56.4 mg/dL (0.0-131.0)
== END | disposition home or self-care (01) ==
LOC: LABWHC1 09:55
PROVIDERS: ATTEND Internal Medicine Interventional Cardiology
DX: E78.2 Mixed hyperlipidemia (principal)
CPT/HCPCS: 36415; 80061; 84450; 84460

== ENCOUNTER → 2024-03-29 | Outpatient (CLI) | payer BC ==
--- NOTE | 2024-03-31 12:35 | PE ---
EXAMINATION TYPE: PET CT fusion skull to thigh DATE OF EXAM: 03/29/2024 CLINICAL INDICATION:Female, 63 years old with history of R91.1 LUNG NODULE; TECHNIQUE: Following the intravenous administration of 12.74 mCi of F-18 FDG, whole body images are performed from the skull base to the midthigh. Images are reviewed on the computer in the coronal, axial, and sagittal planes. Reconstructed rotating images are created on independent workstation and reviewed on the computer. A non-contrast CT is performed in conjunction with the PET scan. Glucose level 110 mg/dL CT DLP: 11/07/1946 mGycm, Automated exposure control for dose reduction was used. COMPARISON: CT 08/02/2019, PET/CT None, MRI: None FINDINGS: Mediastinal SUV mean is 1.9. Hepatic parenchyma SUV mean is 2.4. SKULL BASE AND NECK: No suspicious radiotracer activity. CHEST, MEDIASTINUM, AND HILAR REGION: * Right upper lung pulmonary nodule measuring 20 x 14.7 cm, previously 8 mm on 04/01/2019 axis SUV 12 .1 ABDOMEN AND PELVIS: * No suspicious radiotracer activity. * Large right adrenal nodule without abnormal FDG activity max SUV 2.8 and measuring -6 Hounsfield u nits compatible with lipid rich adrenal adenoma. MUSCULOSKELETAL STRUCTURES: No suspicious radiotracer activity. OTHER CT: Atherosclerosis of the carotid bifurcations and arterial vasculature including the coronary arteries. IMPRESSION: Right upper lobe FDG avid pulmonary nodule compatible with malignancy. No FDG avid enlarged nodes at this time to suggest metastatic disease.
== END | disposition home or self-care (01) ==
LOC: RADPETMAIN 09:25
PROVIDERS: ATTEND Student in an Organized Health Care Education/Training Program
DX: R91.1 Solitary pulmonary nodule (principal)
CPT/HCPCS: 78815; A9552

== ENCOUNTER → 2024-05-02 | Day surgery (SDC) | payer BC ==
[2024-05-01 10:11] VITALS: BMI 25.7
[~2024-05-02] MED LIST changes: +GLYCOPYRROLATE 0.2 MG/ML 2 ML VIAL ONE; +LIDOCAINE 1% INJ 10MG/ML (20 ML MDV) ONE; +NEOSTIGMINE 1 MG/ML 10 ML VIAL ONE; +ONDANSETRON 4 MG/2 ML VIAL ONE; +PROPOFOL 10 MG/ML 20 ML VIAL IV ONE; +ROCURONIUM 10 MG/ML (5 ML VIAL) IV ONE; +SUCCINYLCHOLINE CHLORIDE 200 MG/10 ML VIAL IV ONE; +ePHEDrine 50 MG/ML 1 ML VIAL ONE; +fentaNYL (PF) 50 MCG/ML 2 ML AMP ONE
[2024-05-02] MEDS: IV FLUID CONTINUATION 1,000 ML IV ONE (10:59)
--- NOTE | 2024-05-02 11:01 | CT ---
EXAMINATION TYPE: CT Chest wo ION protocol DATE OF EXAM: 05/02/2024 COMPARISON: 03/29/2024 HISTORY: Ion bronchoscopy, solitary pulmonary nodule. CT DLP: 382 mGycm. Automated Exposure Control for Dose Reduction was Utilized. TECHNIQUE: CT scan of the thorax is performed without IV contrast. FINDINGS: LUNGS: Emphysematous changes. There is a 2 mm subpleural nodule right upper lobe image 58. Spiculated highly suspicious lesion invo lving the right upper lobe measuring 2 cm. No consolidative pneumonia. Subsegmental areas of atelectasis involving both lungs with no consolidat eusebia pneumonia or pulmonary edema. MEDIASTINUM: Lack of IV contrast is noted to limit evaluation for mediastinal and especially hilar ad enopathy. There are no definitive greater than 1 cm hilar or mediastinal lymph nodes. No cardiomega ly or pericardial effusion is seen. Atherosclerotic change aorta. Trace pericardial fluid. Coronary a rtery calcification. OTHER: Hypertrophic and degenerative changes of the spine. Low density right adrenal nodule likely re lated to adenoma. Postcholecystectomy changes. Benign appearing left renal cyst is nonspecific thicke fortino left adrenal gland. Bilateral thyroid nodules. Appears to be a left subclavian stent and there i s atherosclerotic change of the vasculature. Postsurgical changes of the cervical spine. IMPRESSION: 1. 2 cm spiculated right upper lobe mass suspicious for malignancy. 2. 1 to 2 mm subpleural right upper lobe micronodule too small to characterize. Likely benign. Follow-up recommendations for incidental pulmonary nodules are per [employer] or [employer].
--- NOTE | 2024-05-02 12:52 | P.PCN ---
Date of Procedure: 05/02/24 Description of Procedure: Operative Findings: Preoperative Diagnosis: Right upper lobe mass measuring 20 x 16 mm Postoperative Diagnosis: Right upper lobe mass Procedure(s) Performed: Flexible bronchoscopy Robotic-assisted bronchoscopy and addition to radial ultrasound evaluation of the right upper lobe mass Robotic-assisted transbronchial needle aspirate, transbronchial biopsies and transbronchial brushing of a right upper lobe mass in addition to a bronchioloalveolar lavage Endobronchial ultrasound TBNA of the station 7 Anesthesia: GETA Surgeon: Bhavya Ferguson Estimated Blood Loss (ml): 0 Pathology: other Condition: stable Disposition: same day Operative Findings: A physical exam was performed. Informed consent was obtained from the patient after explaining all the risks (pneumothorax, life threatening bleeding, infection and adverse effects due to medications), benefits and alternatives to the procedure which the patient appeared to understand and so stated. The patient was connected to the monitoring devices. General anesthesia was induced and the patient was intubated by anesthesia. A final timeout was performed and the procedure confirmed by the attending staff bronchoscopist. The bronchoscope was inserted and the airway examined. The patient had some secretions within the within the airways. The flexible bronchoscope was removed and the robotic bronchoscope was inserted. Registration was completed. I next guided the robotic bronchoscope using the navigation system into the right post. segment of the RUL. Once in proper position, the bronchoscope was frozen. The radial EBUS probe was placed through the bronchoscope and confirmed abnormal u/s images vs normal lung. A needle was placed through the working channel and under fluoroscopic guidance, we sampled the area thought to have the mass twice. We then used a cloud biopsy pattern with ultrasound confirmation for 2 additional passes with the needle. U/S evaluation was then used to reconfirm location. Forceps were next introduced through working channel and extended the appropriate distance and 3 transbronchial biopsies were performed using fluoroscopic guidance. The u/s probe was then reinserted to confirm location. When confirmed this process was repeated for a total of 8-10 transbronchial biopsies. After reassessment with EBUS, a brush was placed through the extendable working channel for 1 pass with fluoroscopic guidance. U/S evaluation was then used to confirm location. 40ml of saline was then instilled into the area of the lesion. The robotic bronchoscope was removed and the airway inspected with a flexible bronchoscope and 10 ml of effluent from the BAL was collected. The aspirate was bloody and ultimately declotted and based on that, the sample was discarded. Flex. bronchoscope was inserted and regular suctioning was done. At the completion of the procedure, no residual secretions or bloody material within the airway. The bronchoscope was removed. Endobronchial ultrasound was done with mediastinal lymph node evaluation. A detailed evaluation of the mediastinal lymph nodes was done using endobronchial ultrasound. Based on examination, there was a 7x8 mm subcarinal station 7 lymph nodes , negative for any significant lymphadenopathy. Using a 22-gauge vizishot needle, transbronchial needle aspirate of the subcarinal lymph node station 7 was done and a total of 3 separate passes from the stations was taken. No complications. No bleeding. Endobronchial ultrasound was removed. Flexible bronchoscope was introduced and have regular suctioning was done and the airway was evacuated from any residual bloody secretions. The flexible bronchoscope was 1 and the patient was extubated and transferred to recovery in stable condition. Chest x-rays to follow. FINDINGS: 1.The airways appeared normal 2 Successful navigation, ultrasonographic identification, and biopsies of right upper lobe mass 3.The the radial ultrasound view was concentric RECOMMENDATIONS: Await pathology and cytology results The referring physician will be alerted to the results when available. The patient was advised to follow up with the referring physician with the biopsy results Patient will be called with results.
[2024-05-02 13:05] VITALS: TEMP 97.9
--- NOTE | 2024-05-02 13:28 | XR ---
EXAMINATION TYPE: XR chest 1V DATE OF EXAM: 05/02/2024 COMPARISON: CT scan 05/02/2024 HISTORY: Post bronchoscopy TECHNIQUE: Single frontal view of the chest is obtained. FINDINGS: No sizable pneumothorax. Postsurgical change overlying the cervical spine. Osteopenia and arthropathy of the shoulders. Atherosclerotic change aorta. No focal pneumonia or interstitial edema. IMPRESSION: 1. No pneumothorax 2. Large right upper lobe lung mass measuring approximately 2 cm.
--- NOTE | 2024-05-02 14:09 | FL ---
EXAMINATION TYPE: FL bronchoscopy Intraoperative/procedural fluoroscopic services were provided. Tota l fluoroscopy time is 1 minute 23 seconds with a total of 2 submitted images to PACS. Please see the operative/procedural note for further details. DAP: 3.5666 Gycm2
[2024-05-02 14:19] VITALS: BP 126/54; PULSE 61; RESP 18
== END ==
LOC: ORWHC2ENDO 10:07
PROVIDERS: ATTEND Internal Medicine Critical Care Medicine
DX: R91.8 Other nonspecific abnormal finding of lung field
CPT/HCPCS: 31623; 31624; 31628; 31629; 31652; 71045; 71250; 87070; 87102; 87116; 87205; 87206; 87496; 87498; 87502; 87529; 87634; 87635; 87798; 88108; 88305

== ENCOUNTER → 2024-09-13 | Outpatient (CLI) | payer MEDICARE, OTHER ==
[2024-09-13 10:30] LABS: African American GFR (CKD) 87 (>60 ml/min/1.73 sqM); Blood Urea Nitrogen 12 mg/dL (7-17); Non-African American GFR(CKD) 75 (>60 ml/min/1.73 sqM)
--- NOTE | 2024-09-13 11:05 | CT ---
EXAMINATION TYPE: CT chest w con DATE OF EXAM: 09/13/2024 COMPARISON: Prior PET/CT March 29, 2024 HISTORY: PULMONARY NODULE CT DLP: 284.90 mGycm. Automated Exposure Control for Dose Reduction was Utilized. TECHNIQUE: CT scan of the thorax is performed following with IV Contrast, patient injected with 100 mL of Isovue 300. FINDINGS: LUNGS: Posterior right upper lobe pulmonary nodule grossly stable in size measuring 1.9 x 1.8 cm curr ent study on image 19 versus 2.0 x 1.5 cm on PET/CT. No new greater than 6 mm pulmonary nodules or masses. There is no pleural effusion or pneumothorax seen. The tracheobronchial tree is patent. MEDIASTINUM: There are no greater than 1 cm hilar or mediastinal lymph nodes. No cardiomegaly or pe ricardial effusion is seen. Coronary artery calcification is redemonstrated. OTHER: Stable low dense right adrenal mass favoring benign lipid rich adenoma axial image 58 measurin g 3.2 x 2.6 cm. A few simple appearing renal cysts bilaterally are redemonstrated. There is moderate calcified plaque of the aorta. Last axial images show partial visualization of known infrarenal AAA. IMPRESSION: Suspicious right upper lobe pulmonary nodule is grossly stable in size. No new nodules or adenopathy seen. Other findings noted as detailed above. [facility], , 09/13/2024 11:03 AM
[2024-09-13 15:17] LABS: ALT 13 U/L (8-44); AST 16 U/L (13-35); Albumin 4.4 g/dL (3.8-4.9); Albumin/Globulin Ratio 1.63 Ratio (1.60-3.17); Alkaline Phosphatase 114 U/L (41-126); BUN/Creat Ratio 12.22 Ratio (12.00-20.00); Calcium 9.2 mg/dL (8.7-10.3); Carbon Dioxide 23.7 mmol/L (21.6-31.8); Chloride 105 mmol/L (96-109); Chol/HDL Ratio 1.98 Ratio; Globulin 2.7 g/dL (1.6-3.3); Glucose 102 mg/dL (70-110); LDL Cholesterol,Calculated 52.9 mg/dL (0.0-131.0); Potassium 3.4 mmol/L (3.5-5.5); Sodium 140 mmol/L (135-145); Total Bilirubin 0.4 mg/dL (0.3-1.2); Total Protein 7.1 g/dL (6.2-8.2)
== END | disposition home or self-care (01) ==
LOC: RADCTMAIN 09:59
PROVIDERS: ATTEND Internal Medicine
DX: R91.1 Solitary pulmonary nodule (principal)
CPT/HCPCS: 80061; 80053; 82565; 84520; 71260; 36415; Q9967

== ENCOUNTER → 2025-01-10 | Outpatient (CLI) | payer MEDICARE, OTHER ==
[2025-01-10 09:42] LABS: African American GFR (CKD) 84 (>60 ml/min/1.73 sqM); Blood Urea Nitrogen 14 mg/dL (7-17); Non-African American GFR(CKD) 73 (>60 ml/min/1.73 sqM)
--- NOTE | 2025-01-10 10:20 | CT ---
EXAMINATION TYPE: CT chest w con CT DLP: 335.50 mGycm, Automated exposure control for dose reduction was used. DATE OF EXAM: 01/10/2025 10:06 AM COMPARISON: CT chest 09/13/2024, 05/02/2024, CTA chest 08/02/2019, PET CT 03/29/2024 CLINICAL INDICATION:Female, 64 years old with history of R91.1 SOLITARY PULMONARY NODULE; PH[facility], pulmon cindy nodule/ mass. TECHNIQUE: Multiple axial images were obtained through the chest following the administration of 100 cc of Isovue 300. . Coronal and sagittal reformats reviewed. FINDINGS: LUNGS/ PLEURA: No pleural effusion, pneumothorax, focal consolidation. Linear scarring and/or atelect asis within the lingula. Marginal increase in size of right upper lobe spiculated solitary pulmonary nodule (series 4, image 19). Measures 2.1 x 1.9 cm. Previously measured 1.9 x 1.8 cm on most recent C T. Previously measured 2.0 x 1.5 cm on prior PET/CT. Demonstrated FDG activity in prior PET/CT. No ne w suspicious pulmonary nodules. AIRWAY: Patent and unremarkable.. HEART: Size within normal limits. . No pericardial effusion. Mild coronary artery calcifications pres ent. MEDIASTINUM: No evidence of adenopathy. VASCULATURE: No thoracic aortic aneurysm. Left subclavian artery vascular stent. Atelectatic calcifi cation of the aorta and its branches. Partial visualization of aneurysmal dilatation of the abdominal aorta measuring up to 4.2 cm. Previously measured up to 3.[address] MUSCULOSKELETAL: No acute osseous abnormalities a partial visualization of anterior cervical fusion h ardware. No aggressive osseous lesion. Moderate multilevel degenerative disc disease. SOFT TISSUES/LYMPH NODES: Unremarkable. LOWER NECK: Subcentimeter hypodense nodules within both thyroid lobes. Macrocalcification within the left thyroid lobe. UPPER ABDOMEN: Cholelithiasis. Redemonstration of right adrenal gland lesion measuring up to 3.3 cm, previously 3.2 cm. This previously demonstrate characteristics consistent with a lipid rich adenoma a nd is stable in size. Stable simple appearing left renal cyst measuring up to 2.1 cm. No follow up re commended. IMPRESSION: 1. Marginal increase in size of right upper lobe spiculated pulmonary nodule from prior CT. This is s lightly increased in size dating back to prior PET/CT in which this was FDG avid. This is again highl y concerning for primary lung malignancy. No new pulmonary nodules. 2. Stable right adrenal gland lesion most consistent with a lipid rich adenoma. 3. Increased size of partially visualized abdominal aortic aneurysm measuring up to 4.2 cm. Previousl y measured 3.6 cm. Continued surveillance is recommended. 4. Cholelithiasis. [facility], , 01/10/2025 10:18 AM
== END | disposition home or self-care (01) ==
LOC: RADCTMAIN 09:01
PROVIDERS: ATTEND Internal Medicine
DX: R91.1 Solitary pulmonary nodule (principal); I71.40 Abdominal aortic aneurysm, without rupture, unspecified; K80.20 Calculus of gallbladder without cholecystitis without obstruction
CPT/HCPCS: 82565; 84520; 71260; 36415; Q9967

== ENCOUNTER 2025-02-26 05:53 | Day surgery (SDC) | payer MEDICARE, OTHER ==
[2025-02-26] MEDS: IV FLUID CONTINUATION 1,000 ML IV ONE (06:38)
[2025-02-26] MEDS: LACTATED RINGERS 1,000 ML IV SCH (06:53)
[2025-02-26 06:57] VITALS: TEMP 97.9
[2025-02-26] MEDS ORDERED: PROPOFOL 10 MG/ML 20 ML VIAL IV ONE (07:00)
[2025-02-26] MEDS ORDERED: LIDOCAINE 1% INJ 10MG/ML (20 ML MDV) ONE (07:00)
--- NOTE | 2025-02-26 07:32 | P.PCN ---
Date of Procedure: 02/26/25 Procedure(s) Performed: Brief history: Patient is a pleasant 64-year-old pleasant white female scheduled for an elective upper endoscopy as well as colonoscopy as a part of evaluation of abdominal pain, abdominal bloating, chronic diarrhea for the last several months duration. Procedure performed: Esophagogastroduodenoscopy with biopsy Colonoscopy with biopsy and snare polypectomy Preoperative diagnosis: Abdominal pain/abdominal bloating Chronic diarrhea and intermittent rectal bleeding Anest[place]: [facility] [place]: After informed consent was obtained from the patient was brought into the endoscopy unit and IV sedation was administered by anesthesia under continuous monitoring. Initially upper endoscopy was done. The Olympus GF 160 video endoscope was inserted inserted into the mouth and esophagus intubated without any difficulty and was gradually advanced into the stomach and duodenum and carefully examined. The bulb and second part of the duodenum appeared normal. The scope was then withdrawn into the stomach adequately insufflated with air and upon careful examination the antrum had diffuse gastritis and biopsies were done from this area. Mucosa of the and body, cardia and fundus appeared normal. The scope was then withdrawn into the esophagus. Small hiatal hernia noted. T he GE junction was located at 40 cm to the incisors. It appeared regular with no erythema erosions or ulcerations. Rest of the esophagus appeared normal. Patient tolerated the procedure well. At this time the patient continued to remain sedation. Initial digital rectal examination was normal. Olympus CF 160 video colonoscope was then inserted into the rectum and gradually advanced to the cecum without any difficulty. Careful examination was performed as the scope was gradually being withdrawn. The prep was excellent. The cecum, appeared normal. The ascending colon there was a 5 mm polyp that was removed by cold biopsy. Rest of the ascending colon, transverse colon, descending colon, sigmoid colon and rectum appeared normal. The distal rectum there was a 7 mm polyp that was removed by cold snare polypectomy. Retroflexion was performed in the rectum and small internal were noted. Patient tolerated the procedure well. Impression: 1. Upper endoscopy revealed diffuse epigastric disease and small hiatal hernia 2. Colonoscopy revealed 5 mm ascending colon polyp status post cold biopsy and 7 mm distal rectal polyp status post cold snare polypectomy, small internal hemorrhoids Recommendations: Findings of this examination were discussed with the patient as well as her family. She was advised to follow-up with the biopsy results. If the biopsy reveals adenoma she can have repeat colonoscopy 5 years.
[2025-02-26 07:40] VITALS: RESP 18
[2025-02-26 07:54] VITALS: PULSE 59
[2025-02-26 08:07] VITALS: BP 115/47
== END 2025-02-26 08:33 | disposition home or self-care (01) ==
LOC: ORWHC2ENDO 05:53
PROVIDERS: ATTEND Internal Medicine Gastroenterology
DX: D12.2 Benign neoplasm of ascending colon (principal); K52.9 Noninfective gastroenteritis and colitis, unspecified; K44.9 Diaphragmatic hernia without obstruction or gangrene; K29.80 Duodenitis without bleeding; K62.1 Rectal polyp; I10 Essential (primary) hypertension; E78.5 Hyperlipidemia, unspecified; I25.10 Atherosclerotic heart disease of native coronary artery without angina pectoris; J44.9 Chronic obstructive pulmonary disease, unspecified; I73.9 Peripheral vascular disease, unspecified; F32.A Depression, unspecified; F41.9 Anxiety disorder, unspecified; Z86.0100 Personal history of colon polyps, unspecified; Z86.73 Personal history of transient ischemic attack (TIA), and cerebral infarction without residual deficits; Z79.82 Long term (current) use of aspirin; Z79.899 Other long term (current) drug therapy; Z88.0 Allergy status to penicillin
CPT/HCPCS: 88305; 88313; 45380; 45385; 43239; J2003; J2704